=== PATIENT | female | born 1965 | race Caucasian/White ===

== ENCOUNTER → 2024-03-01 13:57 | Outpatient (REF) | payer BC, SELFPAY | LOC: WDC 13:57 | PROVIDERS: ATTENDING PHYSICIAN Obstetrics & Gynecology; FAMILY PHYSICIAN Nurse Practitioner Primary Care | DX: R92.2 Inconclusive mammogram (principal) | CPT/HCPCS: 76641 ==

== ENCOUNTER → 2024-04-25 11:32 | Outpatient (REF) | payer BC, SELFPAY | LOC: WDC 11:32 | PROVIDERS: ATTENDING PHYSICIAN Obstetrics & Gynecology; FAMILY PHYSICIAN Nurse Practitioner Primary Care | DX: Z12.31 Encounter for screening mammogram for malignant neoplasm of breast (principal) | CPT/HCPCS: 77063; 77067 ==

== ENCOUNTER → 2024-06-02 08:57 | Outpatient (REF) | payer BC, SELFPAY | LOC: HWEVLT 08:57 | PROVIDERS: ATTENDING PHYSICIAN Radiology Vascular & Interventional Radiology | DX: I83.893 Varicose veins of bilateral lower extremities with other complications (principal) | CPT/HCPCS: 93970 ==

== ENCOUNTER → 2024-07-27 08:01 | Outpatient (REF) | payer BC, SELFPAY | LOC: HWEVLT 08:01 | PROVIDERS: ATTENDING PHYSICIAN Radiology Vascular & Interventional Radiology | DX: I83.891 Varicose veins of right lower extremity with other complications (principal) | CPT/HCPCS: 36478; C1769 ==

== ENCOUNTER → 2024-08-16 11:03 | Outpatient (REF) | payer BC, SELFPAY | LOC: HWEVLT 11:03 | PROVIDERS: ATTENDING PHYSICIAN Radiology Vascular & Interventional Radiology | DX: I83.891 Varicose veins of right lower extremity with other complications (principal) | CPT/HCPCS: 93971 ==

== ENCOUNTER → 2025-04-18 15:08 | Outpatient (REF) | payer BC, SELFPAY | LOC: MRI 3T 15:08 | PROVIDERS: ATTENDING PHYSICIAN Physician Assistant; FAMILY PHYSICIAN Nurse Practitioner Primary Care | DX: H90.A21 Sensorineural hearing loss, unilateral, right ear, with restricted hearing on the contralateral side (principal) | CPT/HCPCS: 70553; A9575 ==

== ENCOUNTER → 2025-04-26 14:25 | Outpatient (REF) | payer BC, SELFPAY ==
[2025-04-26 15:04] LABS: Hematocrit 34.8 % (37.0-47.0); Hemoglobin 12.0 g/dL (12.0-16.0); Mean Corp Hgb Conc. 34.5 g/dL (33.0-37.0); Mean Corpuscular Volume 87.4 fL (81.0-99.0); Nucleated Red Blood Cells % 0 %; Platelet Count 302 10^3/uL (130-400); Red Cell Dist. Width 13.2 % (11.5-14.5)
[2025-04-26 15:14] LABS: Urine Character Slightly Cloudy (Clear)
[2025-04-26 15:22] LABS: Urine Squamous Cell 16-20 /LPF (Few)
[2025-04-26 15:23] LABS: Urine White Cell 30-40 /HPF (0-5)
[2025-04-26 16:05] LABS: ALT (SGPT) 25 U/L (0-35); AST (SGOT) 20 U/L (14-36); Albumin 4.6 g/dl (3.5-5.0); Alkaline Phosphatase 63 U/L (38-126); Blood Urea Nitrogen 14 mg/dl (7-17); Calcium 9.2 mg/dl (8.4-10.2); Carbon Dioxide 26 mmol/L (22-30); Chloride 106 mmol/L (98-107); Glucose 96 mg/dl (70-99); Potassium 4.2 mmol/L (3.5-5.1); Sodium 140 mmol/L (135-145); Total Protein 7.6 g/dl (6.3-8.2); eGFR > 60.00
== END ==
LOC: REG 14:25
PROVIDERS: ATTENDING PHYSICIAN Nurse Practitioner Family; FAMILY PHYSICIAN Nurse Practitioner Primary Care
DX: K57.92 Diverticulitis of intestine, part unspecified, without perforation or abscess without bleeding (principal); R10.32 Left lower quadrant pain; R19.7 Diarrhea, unspecified
CPT/HCPCS: 36415; 80053; 81003; 81015; 85025; 87077; 87086

== ENCOUNTER → 2025-04-26 14:41 | Outpatient (REF) | payer BC, SELFPAY | LOC: RAD 14:41 | PROVIDERS: ATTENDING PHYSICIAN Nurse Practitioner Family; FAMILY PHYSICIAN Internal Medicine | DX: K57.92 Diverticulitis of intestine, part unspecified, without perforation or abscess without bleeding (principal); R10.32 Left lower quadrant pain; R19.7 Diarrhea, unspecified | CPT/HCPCS: 36415; 74177; 80053; 81003; 81015; 85025; 87086; Q9967 ==

== ENCOUNTER → 2025-04-27 11:44 | Outpatient (REF) | payer BC, SELFPAY | LOC: WDC 11:44 | PROVIDERS: ATTENDING PHYSICIAN Obstetrics & Gynecology; FAMILY PHYSICIAN Nurse Practitioner Primary Care | DX: Z12.31 Encounter for screening mammogram for malignant neoplasm of breast (principal) | CPT/HCPCS: 77063; 77067 ==

== ENCOUNTER → 2025-09-15 08:00 | Outpatient (REF) | payer BC, SELFPAY | LOC: WDC 08:00 | PROVIDERS: ATTENDING PHYSICIAN Obstetrics & Gynecology; FAMILY PHYSICIAN Nurse Practitioner Primary Care | DX: R92.2 Inconclusive mammogram (principal) | CPT/HCPCS: 76641 ==